=== PATIENT | female | born 1940 | race Caucasian/White ===

== ENCOUNTER 2017-09-08 13:30 | Outpatient (CLI) | payer MEDICARE, BC ==
--- NOTE | 2017-09-08 14:32 | RAD ---
CHEST PA AND LATERAL: Date: 09/08/17 HISTORY: 77-year-old female with history of malignant neoplasm upper lobe. COMPARISON: 02/05/17 and 09/25/12. FINDINGS: There is stable left-sided volume loss and prior postsurgical clips in the left hilar region. Stable circumscribed nodule in the right middle lobe. Stable vertical height loss of one of the mid lower th oracic vertebral bodies. IMPRESSION: Stable postop left thoracotomy changes. Stable biapical pleural thickening. Stable right middle lobe pulmonary nodule. No new process. POS: [facility]
== END 2017-09-08 13:31 | disposition home or self-care (01) ==
LOC: RAD 13:30
PROVIDERS: ATTEND Thoracic Surgery (Cardiothoracic Vascular Surgery)
DX: C34.12 Malignant neoplasm of upper lobe, left bronchus or lung (principal); I70.212 Atherosclerosis of native arteries of extremities with intermittent claudication, left leg; R91.1 Solitary pulmonary nodule; Z98.890 Other specified postprocedural states
CPT/HCPCS: 71046

== ENCOUNTER 2018-02-09 09:24 | Outpatient (CLI) | payer MEDICARE, BC ==
--- NOTE | 2018-02-09 12:38 | CT ---
CT OF CHEST PERFORMED WITHOUT CONTRAST ENHANCEMENT: HISTORY: Followup of left lung cancer. The patient completed chemo treatments in 2016. COMPARISON: A 02/18/17 study done at [facility]. FINDINGS: Postop changes of the left lung are again noted. Surgical clips are seen in the left hilar region wi th left upper lobe lobectomy-type change. The left-sided pleural changes seen in the left base are s table as compared to the prior examination. The pleural-based nodular area along the left lateral th oracic wall is similar in appearance. There are no new findings. The hamartoma of the right middle lobe is stable. There is no significant mediastinal adenopathy appreciated. The visualized liver parenchyma is unremarkable. Right and left adrenal glands are normal in size. Scoliotic changes of the spine and arthritic changes are stable. Some minimal compression changes of T8 are unchanged. IMPRESSION: 1. Stable overall examination. Postoperative changes of the left lung show no interval change since the prior exam. 2. Stable right middle lobe hamartoma. 3. Small hiatal hernia. POS: [facility]
== END 2018-02-09 09:25 | disposition home or self-care (01) ==
LOC: CT 09:24
PROVIDERS: ATTEND Internal Medicine Hematology & Oncology
DX: C34.82 Malignant neoplasm of overlapping sites of left bronchus and lung (principal); J98.4 Other disorders of lung; K44.9 Diaphragmatic hernia without obstruction or gangrene; Z90.2 Acquired absence of lung [part of]
CPT/HCPCS: 71250

== ENCOUNTER 2019-02-01 08:40 | Outpatient (CLI) | payer MEDICARE, BC ==
--- NOTE | 2019-02-01 11:02 | CT ---
CT OF THE THORAX WITHOUT IV CONTRAST: INDICATION: History of lung cancer. COMPARISON: CT of the chest without contrast dated February 09, 2018, and February 18, 2017. FINDINGS: There is stable postoperative change of a left upper lobectomy. The pleural parenchymal scarring inv olving the left lung base is stable. The nodular pleural density seen in the lateral aspect of the m id left lower lobe measuring 16.8 x 7 mm which is relatively stable to the comparison in 2017 and lik janelle reflects a region of pleural scarring from the patient's prior procedure. Scattered emphysema and right middle lobe hamartoma is stable. No new suspicious pulmonary nodule is evident. There are scattered coronary artery thoracic aortic calcifications. No definite enlarged mediastinal or axillary lymph node is evident. Visualized upper abdomen shows normal-appearing adrenal glands. Mild superior end plate compression abnormality of T9 is stable. Thoracolumbar scoliosis is stable. No suspicious osteolytic or osteoblastic lesions identified. IMPRESSION: Stable exam. No evidence of recurrent disease. POS: [facility]
== END 2019-02-01 08:41 | disposition home or self-care (01) ==
LOC: BICCT 08:40
PROVIDERS: ATTEND Internal Medicine Hematology & Oncology
DX: C34.82 Malignant neoplasm of overlapping sites of left bronchus and lung (principal)
CPT/HCPCS: 71250

== ENCOUNTER 2020-03-09 07:43 | Outpatient (CLI) | payer MEDICARE, BC ==
[2020-03-09] MEDS ORDERED: Regadenoson 0.4 MG/5 ML SYRINGE ONE (08:34)
--- NOTE | 2020-03-09 12:12 | NM ---
EXAM: CARDIAC SPECT HISTORY: Chest pain, hypertension, COPD, dyslipidemia, smoker TECHNIQUE: A myocardial perfusion scan was performed using the single isotope 1 day protocol with pierce hnetium 99m sestamibi. [10 mCi] was injected intravenously for the rest exam followed by 30 mCi for the stress study. Pharmacologic stress with Lexiscan was monitored and interpreted by the physician's team assistant FINDINGS: Homogeneous tracer distribution is seen in the myocardial segments on stress and rest image s without fixed or reversible defects. Gated SPECT LVEF: 80% Wall motion exam: Normal IMPRESSION: Normal myocardial perfusion scan
== END 2020-03-09 07:44 | disposition home or self-care (01) ==
LOC: NM 07:43
PROVIDERS: ATTEND Internal Medicine
DX: R07.9 Chest pain, unspecified (principal)
CPT/HCPCS: 78452; 93017; A9500; J2785

== ENCOUNTER 2021-02-20 08:33 | Outpatient (CLI) | payer MEDICARE, BC | END 2021-02-20 08:34 | disposition home or self-care (01) | LOC: BICCT 08:33 | PROVIDERS: ATTEND Internal Medicine Hematology & Oncology | DX: C34.82 Malignant neoplasm of overlapping sites of left bronchus and lung (principal); J43.2 Centrilobular emphysema; Z98.890 Other specified postprocedural states; Q85.9 Phakomatosis, unspecified; K80.20 Calculus of gallbladder without cholecystitis without obstruction | CPT/HCPCS: 71250 ==

== ENCOUNTER 2022-02-19 08:30 | Outpatient (CLI) | payer MEDICARE, BC | END 2022-02-19 08:31 | disposition home or self-care (01) | LOC: BICCT 08:30 | PROVIDERS: ATTEND Internal Medicine Hematology & Oncology | DX: C34.82 Malignant neoplasm of overlapping sites of left bronchus and lung (principal); J43.9 Emphysema, unspecified; K74.60 Unspecified cirrhosis of liver; Q85.9 Phakomatosis, unspecified | CPT/HCPCS: 71250 ==